=== PATIENT | male | born 1955 | race Caucasian/White ===

== ENCOUNTER 2024-03-29 19:52 | Inpatient (IN) | payer MEDICARE, OTHER ==
[2024-03-29 20:33] LABS: #Basophils 0.05 10x3/uL (0.0-0.2); %Basophils 0.7 % (0.0-1.0); %Eosinophils 3.6 % (0.0-10.0); %Lymphocytes 33.6 % (21.0-51.0); %Monocytes 12.9 % (0.0-10.0); %Neutrophils 48.8 % (42.0-75.0); Hematocrit 39.8 % (42.0-52.0); Hemoglobin 13.2 g/dL (14.0-18.0); Mean Corpuscular HGB CONC 33.2 g/dL (32.0-36.0); Mean Corpuscular Hemoglobin 29.1 pg (27.0-31.0); Mean Corpuscular Volume 87.9 fL (78.0-98.0); Mean Platelet Volume 10.6 fL (7.4-10.4); Platelet Count 209 10x3/uL (130-400); RBC Distribution Width 13.3 % (11.5-14.5); Red Blood Cell (RBC) Count 4.53 mill/uL (4.70-6.10)
[2024-03-29 20:46] LABS: ALT (SGPT) 22 U/L (8-55); AST (SGOT) 17 U/L (5-34); Albumin 3.9 g/dL (3.4-4.8); Alkaline Phosphatase 71 U/L (40-110); Anion Gap 12 mmol/L (10-20); BUN (Urea Nitrogen) 21 mg/dL (8.4-25.7); Bilirubin, Total 0.4 mg/dL (0.2-1.2); Calc. Creatinine Clearance 0 mL/min (70-130); Calcium 9.3 mg/dL (7.8-10.44); Carbon Dioxide 25 mmol/L (23-31); Chloride 104 mmol/L (98-107); Estimated GFR 65; Globulin 3.5 g/dL (2.4-3.5); Glucose 110 mg/dL (80-115); Potassium 4.2 mmol/L (3.5-5.1); Protein, Total 7.4 g/dL (5.8-8.1); Sodium 137 mmol/L (136-145)
[2024-03-29 20:52] LABS: Troponin I Less than 0.010 ng/mL (< 0.028)
[2024-03-29] MEDS ORDERED: Acetaminophen 325 MG TAB PO PRN ×2 (23:15→23:27)
[2024-03-29] MEDS ORDERED: Ondansetron PF 4 MG/2 ML Vial IVP PRN ×2 (23:15→23:27)
[2024-03-29] MEDS ORDERED: Ondansetron ODT 4 MG TAB SL PRN (23:15)
[2024-03-29] MEDS ORDERED: Dextrose 5% in Water 1,000 ML IV PRN (23:27)
[2024-03-29] MEDS ORDERED: Ondansetron ODT 4 MG TAB PO PRN (23:27)
[2024-03-29] MEDS ORDERED: Nitroglycerin 0.4 MG TAB (25 Tab Bottle) SL PRN (23:27)
[2024-03-29] MEDS ORDERED: Insulin Lispro 100 UNIT/ML 10 ML VIAL SC PRN ×2 (23:27)
[2024-03-29] MEDS ORDERED: Glucagon 1 MG/ML KIT IM PRN (23:27)
[2024-03-29] MEDS ORDERED: Dextrose 50% Abboject 50 ML SYRINGE SLOW IVP PRN (23:27)
[2024-03-30] MEDS ORDERED: Tamsulosin HCl 0.4 MG CAP ONE (00:20)
[2024-03-30] MEDS ORDERED: Aspirin 325 MG TAB ONE (00:20)
[2024-03-30] MEDS: metFORMIN 500 MG TAB PO SCH ×2 (00:27→15:37)
[2024-03-30] MEDS: Aspirin 325 MG TAB PO SCH (00:27)
[2024-03-30] MEDS: Tamsulosin HCl 0.4 MG CAP PO SCH ×2 (00:27→20:43)
[2024-03-30 00:53] LABS: Troponin I Less than 0.010 ng/mL (< 0.028)
[2024-03-30 03:56] LABS: #Basophils 0.05 10x3/uL (0.0-0.2); %Basophils 0.7 % (0.0-1.0); %Eosinophils 4.3 % (0.0-10.0); %Lymphocytes 39.1 % (21.0-51.0); %Monocytes 12.3 % (0.0-10.0); %Neutrophils 43.2 % (42.0-75.0); Hematocrit 38.9 % (42.0-52.0); Hemoglobin 12.7 g/dL (14.0-18.0); Mean Corpuscular HGB CONC 32.6 g/dL (32.0-36.0); Mean Corpuscular Hemoglobin 28.9 pg (27.0-31.0); Mean Corpuscular Volume 88.4 fL (78.0-98.0); Mean Platelet Volume 10.9 fL (7.4-10.4); Platelet Count 205 10x3/uL (130-400); RBC Distribution Width 13.2 % (11.5-14.5)
[2024-03-30 04:06] LABS: Anion Gap 12 mmol/L (10-20); BUN (Urea Nitrogen) 21 mg/dL (8.4-25.7); Calc. Creatinine Clearance 95 mL/min (70-130); Calcium 9.5 mg/dL (7.8-10.44); Carbon Dioxide 21 mmol/L (23-31); Chloride 110 mmol/L (98-107); Estimated GFR 76; Glucose 142 mg/dL (80-115); Sodium 139 mmol/L (136-145)
[2024-03-30 04:35] LABS: Troponin I Less than 0.010 ng/mL (< 0.028)
[2024-03-30] MEDS ORDERED: Aspirin Chewable 81 MG TAB ONE (09:22)
[2024-03-30] MEDS ORDERED: Famotidine 20 MG TAB ONE (09:22)
[2024-03-30] MEDS ORDERED: Electrolyte Replacement Protocol 1 EACH FS PRN (10:23)
[2024-03-30] MEDS ORDERED: Electrolyte Replacement Protocol FS PRN (10:30)
[2024-03-30] MEDS ORDERED: Regadenoson 0.4 MG/5 ML SYRINGE ONE (12:07)
[2024-03-30] MEDS: Famotidine 20 MG TAB PO SCH (15:36)
[2024-03-30] MEDS: Aspirin Chewable 81 MG TAB PO SCH (15:36)
[2024-03-30 18:28] VITALS: BMI 31.0
[2024-03-30] MEDS: Metoprolol Succinate XL 25 MG ER.TAB PO SCH (19:24)
[2024-03-30] MEDS ORDERED: Tamsulosin HCl 0.4 MG CAP PO SCH (21:00)
[2024-03-31] MEDS ORDERED: Adenosine 6 mg (2 mL) VIAL ONE (07:31)
[2024-03-31] MEDS ORDERED: Heparin 10,000 UNITS/ 10 ML VIAL ONE (07:32)
[2024-03-31] MEDS ORDERED: Nitroglycerin 50 MG/250 ML BOT 0 ML ONE (07:32)
[2024-03-31] MEDS ORDERED: Verapamil 5 MG/2 ML VIAL ONE (07:32)
[2024-03-31] MEDS ORDERED: Nitroglycerin 50 MG/250 ML BOT 250 ML ONE (07:33)
[2024-03-31] MEDS ORDERED: Communication Order-Pharmacy FS SCH (07:45)
[2024-03-31] MEDS ORDERED: fentaNYL 50 mcg/mL 1 mL Vial ONE (08:10)
[2024-03-31] MEDS ORDERED: Midazolam HCl 2 mg/2 ml Vial ONE (08:11)
[2024-03-31] MEDS: Magnesium 2 GM/50 ML(in water) 2 GM in Premix 1 BAG IVPB SCH (08:12)
[2024-03-31] MEDS ORDERED: Nitroglycerin 0.4 MG TAB (25 Tab Bottle) SL PRN (08:37)
[2024-03-31] MEDS ORDERED: Sodium Chloride 0.9% 200 ML IV PRN (08:37)
[2024-03-31] MEDS ORDERED: Acetaminophen/Codeine 30-300mg Tablet PO PRN ×2 (08:37)
[2024-03-31] MEDS: Metoprolol Succinate XL 25 MG ER.TAB PO SCH (09:01)
[2024-03-31] MEDS: Sodium Chloride 0.9% 1,000 ML IV SCH (09:01)
[2024-03-31] MEDS: Aspirin 81 mg Enteric Coated Tablet PO SCH (09:01)
[2024-03-31] MEDS ORDERED: Iopamidol 370 76% 100 ML VIAL ONE (14:58)
[2024-03-31 15:55] VITALS: BP 148/76; TEMP 97.8
== END 2024-03-31 18:38 | disposition home or self-care (01) | DRG 287 ==
LOC: ERS 19:52 → ERHOLD 22:46 → OBSVTOIN 03-30 16:32 → OBS 03-30 18:21
PROVIDERS: ADMIT Student in an Organized Health Care Education/Training Program; ATTEND Internal Medicine
PROC: 4A023N7 Measurement of Cardiac Sampling and Pressure, Left Heart, Percutaneous Approach (ICD-10-PCS; principal; 2024-03-31)
PROC: B2111ZZ Fluoroscopy of Multiple Coronary Arteries using Low Osmolar Contrast (ICD-10-PCS; 2024-03-31)
PROC: B2151ZZ Fluoroscopy of Left Heart using Low Osmolar Contrast (ICD-10-PCS; 2024-03-31)
DX: R07.9 Chest pain, unspecified (principal); N40.0 Benign prostatic hyperplasia without lower urinary tract symptoms; I10 Essential (primary) hypertension; E11.9 Type 2 diabetes mellitus without complications; K21.9 Gastro-esophageal reflux disease without esophagitis; E83.42 Hypomagnesemia; F17.290 Nicotine dependence, other tobacco product, uncomplicated; Z88.8 Allergy status to other drugs, medicaments and biological substances; Z90.49 Acquired absence of other specified parts of digestive tract; Z79.84 Long term (current) use of oral hypoglycemic drugs; Z79.899 Other long term (current) drug therapy
CPT/HCPCS: 36415; 36416; 71045; 78452; 80048; 80053; 83735; 84484; 85025; 93005; 93017; 93458; 94760; 99152; A9502; C1769; C1894; J0153; J1644; J2250; J2785; J3010; Q9967